=== PATIENT | male | born 1970 | race Two or more races ===

== ENCOUNTER 2020-05-19 01:42 | Emergency (ER) | payer SELFPAY ==
[~2020-05-19] VITALS: Ht 167.6 cm; Wt 130.4 kg
[2020-05-19 01:45] VITALS: BP 118/61
[2020-05-19] MEDS ORDERED: ONDANSETRON 2MG/ML, 2ML IVPush ONE (02:00)
[2020-05-19] MEDS ORDERED: SODIUM CHLORIDE FLUSH 10ML SYR IVF ONE (02:00)
[2020-05-19] MEDS ORDERED: SODIUM CHLORIDE 0.9% 1,000ML IVBOLUS ONE (02:00)
--- NOTE | 2020-05-19 02:01 | NUR ---
[phone] daughter [phone] son in law [phone]
[2020-05-19 02:04] LABS: BASOPHILS % (AUTO) 2 % (0-1); EOSINOPHILS % (AUTO) 5 % (1-7); LYMPHOCYTES % (AUTO) 51 % (22-44); MEAN CORPUSCULAR HEMOGLOBIN 27.8 pg (27.5-34.5); MEAN CORPUSCULAR HGB CONC 33.2 g/dL (33.2-36.2); MEAN PLATELET VOLUME 10.3 fL (7.4-10.4); MONOCYTES % (AUTO) 10 % (2-9); NEUTROPHILS % (AUTO) 32 % (42-75); PLATELET COUNT 129 x10^3/uL (130-400); RED CELL DISTRIBUTION WIDTH 14.6 % (9.4-14.8)
[2020-05-19] MEDS ORDERED: ONDANSETRON 2MG/ML, 2ML ONE (02:04)
[2020-05-19 02:06] LABS: MD NO
[2020-05-19 02:11] LABS: ALANINE AMINOTRANSFERASE 368 U/L (12-78); ALBUMIN 3.7 g/dL (3.4-5.0); ANION GAP 12 mmol/L (5-15); CALCIUM 8.2 mg/dL (8.5-10.1); CHLORIDE 101 mmol/L (98-107)
[2020-05-19 02:13] LABS: ALKALINE PHOSPHATASE 80 U/L (45-117); BILIRUBIN,TOTAL 0.3 mg/dL (0.2-1.0); TOTAL PROTEIN 7.4 g/dL (6.4-8.2)
--- NOTE | 2020-05-19 02:36 | NUR ---
PT REFUSING CT WANTING TO LEAVE, DR DONALDSON AWARE CALLED FOR SAFE RIDE HOME.
[2020-05-19] MEDS ORDERED: POTASSIUM CHLORIDE 10% 40 MEQ/30 ML UDC PO ONE (03:00)
== END 2020-05-19 03:06 | disposition home or self-care (01) ==
LOC: ED 02:12
DX: F10.120 Alcohol abuse with intoxication, uncomplicated (principal); R55 Syncope and collapse; R94.5 Abnormal results of liver function studies; E87.6 Hypokalemia; I10 Essential (primary) hypertension; R94.31 Abnormal electrocardiogram [ECG] [EKG]; Z90.89 Acquired absence of other organs; Z90.49 Acquired absence of other specified parts of digestive tract; Y90.0 Blood alcohol level of less than 20 mg/100 ml
CPT/HCPCS: 36415; 80053; 80320; 85025; 93005; 96374; 99284; J2405; J7030; G0480